=== PATIENT | male | born 1960 | race Caucasian/White ===

== ENCOUNTER 2022-03-31 05:38 | Observation (INO) ==
[2022-03-31] MEDS ORDERED: Buffered Lidocaine 1% SYRIN 1 ml INTRADERM ONE (06:00)
[2022-03-31] MEDS ORDERED: Lactated Ringers 1000 ml BAG 1,000 ML IV SCH (06:00)
[2022-03-31] MEDS ORDERED: Tranexamic Acid 1 GM/100ML BAG 2,000 MG/200 ML BAG IV ONE (06:38)
[2022-03-31] MEDS ORDERED: ceFAZolin 2 GM PREMIX 2 GM/50 ML BAG ONE (06:39)
[2022-03-31] MEDS ORDERED: Bupivacaine 0.25% w/EPI 10 ML SDV ONE (06:58)
[2022-03-31] MEDS ORDERED: BUPIVACAINE **LIPOSOME/PF 13.3 MG/ML (266MG/ 20ML) VIAL (RESTRICTED) INFIL ONE (07:00)
[2022-03-31] MEDS ORDERED: Ondansetron 4 mg VIAL 2 MG/ML 2 ml VIAL ONE (07:07)
[2022-03-31] MEDS ORDERED: Midazolam 2 mg/2 ml VIAL 1 mg/ml 2 ml VIAL (2 mg) ONE (07:07)
[2022-03-31] MEDS ORDERED: Propofol 10 MG/ML 20 ML BTL ONE ×2 (07:07→08:21)
[2022-03-31] MEDS ORDERED: Dexamethasone IV 4 MG/ML VIAL 1 ml VIAL ONE (07:07)
[2022-03-31] MEDS ORDERED: Lidocaine 2% PF 5 ML VIAL ONE (07:07)
[2022-03-31] MEDS ORDERED: fentaNYL 250 mcg/5 ml 50 MCG/ML 5 ml VIAL (250 MCG) ONE (07:07)
[2022-03-31] MEDS ORDERED: Tranexamic Acid 1,000 MG/10 ML SDV ONE (07:29)
[2022-03-31] MEDS ORDERED: Bupivacaine 0.25% EPI 200,000 30 ML SDV ONE (07:30)
[2022-03-31] MEDS ORDERED: Bupivacaine 0.25% SDV 30 ML ONE (07:30)
[2022-03-31] MEDS ORDERED: ceFAZolin 1 GM in Dextrose 1 GM/50 ML BAG ONE (07:31)
[2022-03-31] MEDS ORDERED: Ketamine HCL 50 mg/ml 10 ml VIAL (500 MG) ONE (07:57)
[2022-03-31] MEDS ORDERED: Acetaminophen IV 1 GM/100ML 1,000 MG/100 ML BAG IV ONE (08:04)
[2022-03-31] MEDS ORDERED: Ondansetron ODT 4 mg TAB 4 MG TAB PO PRN (10:38)
[2022-03-31] MEDS ORDERED: Morphine 2 MG/ML SYRINGE IV PRN (10:38)
[2022-03-31] MEDS ORDERED: Lactulose 30 ml UDC PO PRN (10:38)
[2022-03-31] MEDS ORDERED: Magnesium Hydroxide LIQ 30 ML UDC PO PRN (10:38)
[2022-03-31] MEDS ORDERED: Ondansetron 4 mg VIAL 2 MG/ML 2 ml VIAL IV PRN ×2 (10:38→11:22)
[2022-03-31] MEDS ORDERED: ceFAZolin 1 GM ADVAN 1 GM in NS 0.9% 50 ML 50 ML IVPB SCH (11:00)
[2022-03-31] MEDS ORDERED: fentaNYL 100 mcg/2 ml 50 MCG/ML VIAL IV PRN (11:22)
[2022-03-31] MEDS ORDERED: Acetaminophen IV 1 GM/100ML 1,000 MG/100 ML BAG IV PRN (11:22)
[2022-03-31] MEDS ORDERED: Naloxone 0.4 mg VIAL 0.4 mg/ml 1 ml VIAL IV PRN (11:22)
[2022-03-31] MEDS ORDERED: HYDROmorphone 1 MG/1 ML SYRINGE ONE (11:32)
[2022-03-31] MEDS: HYDROmorphone 1 MG/1 ML SYRINGE IV PRN ×3 (11:33→13:00)
[2022-03-31] MEDS ORDERED: hydrALAZINE 20 mg/ml 1 ML Vial IV ONE (13:41)
[2022-03-31] MEDS ORDERED: hydrALAZINE 20 mg/ml 1 ML Vial IV IV SLOW PU ONE (13:42)
[2022-03-31] MEDS: Lactated Ringers 1000 ml BAG 1,000 ML IV SCH (14:52)
[2022-03-31] MEDS: ceFAZolin 1 GM ADVAN 1 GM in NS 0.9% 50 ML 50 ML IVPB SCH (16:33)
[2022-03-31] MEDS ORDERED: hydrALAZINE 20 mg/ml 1 ML Vial IV IV SLOW PU PRN (18:00)
[2022-03-31] MEDS: Magnesium Hydroxide LIQ 30 ML UDC PO SCH (21:19)
[2022-04-01] MEDS: ceFAZolin 1 GM ADVAN 1 GM in NS 0.9% 50 ML 50 ML IVPB SCH ×2 (01:13→08:26)
[2022-04-01] MEDS: Lactated Ringers 1000 ml BAG 1,000 ML IV SCH (03:54)
[2022-04-01 06:55] LABS: Hematocrit 39 % (42-52); Hemoglobin 13.3 g/dL (14.0-18.0); Mean Platelet Volume 8.9 fL (7.4-10.4); Platelet Count 199 10^3/uL (150-450)
[2022-04-01 07:14] LABS: Potassium 4.2 mmol/L (3.5-5.0); eGFR CKD-EPI 94.1 (>60)
[2022-04-01 08:28] VITALS: BP 121/72
[2022-04-01] MEDS: Magnesium Hydroxide LIQ 30 ML UDC PO SCH (08:40)
[2022-04-01] MEDS ORDERED: Vitamin THERAPEUTIC TAB PO SCH (09:00)
== END 2022-04-01 13:30 | disposition home or self-care (01) ==
LOC: OR 05:38 → SSU 05:38
PROVIDERS: ADMIT Orthopaedic Surgery Sports Medicine; ATTEND Orthopaedic Surgery Sports Medicine